=== PATIENT | female | born 1990 | race Caucasian/White ===

== ENCOUNTER 2019-09-30 21:50 | Emergency (ER) | payer OTHER ==
[~2019-09-30] VITALS: Ht 162.6 cm; Wt 53.1 kg
[2019-09-30 22:25] LABS: *BILIRUBIN,URIN NEGATIVE (NEGATIVE); *BLOOD, URINE NEGATIVE (NEGATIVE); *CLARITY,URINE CLEAR (CLEAR); *COLOR,URINE YELLOW (YELLOW); *KETONES,URINE 2+ (NEGATIVE); *URINE HCG, QUAL NEGATIVE (NEGATIVE); *UROBILINOGEN,URINE 0.2 E.U./dl (NORMAL); LEUKOCYTE ESTERASE ,URINE NEGATIVE (NEGATIVE); NITRITE, URINE NEGATIVE (NEGATIVE); UGLUCOSE NEGATIVE (NEGATIVE)
[2019-09-30 22:29] LABS: BACTERIA,URINE FEW /HPF (NONE SEEN); RBC,URINE 0-3 /HPF (0-3); SQUAMOUS EPITHELIAL CELL,UR MODERATE /HPF (NONE SEEN); WBC,URINE 0-3 /HPF (0-3)
--- NOTE | 2019-09-30 22:40 | NUR ---
DR. MACHUCA AT BEDSIDE FOR MSE.
[2019-09-30] MEDS ORDERED: SULFAMETH/TRIMETH 800/160 MG TABLET ONE (22:45)
[2019-09-30] MEDS ORDERED: SULFAMETH/TRIMETH 800/160 MG TABLET PO ONE (22:45)
--- NOTE | 2019-09-30 22:51 | NUR ---
Patient discharged to home in stable conditon. Written and verbal after care instructions given. Patient verbalizes understanding of instructions.
[2019-09-30 22:52] VITALS: BP 94/72
== END 2019-09-30 22:52 | disposition home or self-care (01) ==
LOC: ER 22:00
DX: N39.0 Urinary tract infection, site not specified (principal); Z91.018 Allergy to other foods
CPT/HCPCS: 84703; A4663